=== PATIENT | female | born 1945 | race American Indian/Alaskan Native ===

== ENCOUNTER 2017-09-30 22:31 | Inpatient (IN) | payer MEDICARE, OTHER, SELFPAY ==
[2017-09-30] VITALS (7 sets, daily range): BP systolic 141–149; BP diastolic 50–58; PULSE 65–71; RESP 18–23; TEMP 36.4; O2SAT 2–100
[2017-09-30] MEDS: ALBUTEROL/IPRATROPIUM 3 ML AMPUL INH (22:42)
--- NOTE | 2017-09-30 22:42 | ED.SOB ---
HPI - SOB/Dyspnea General Chief Complaint: Shortness of Breath/Dyspnea Stated Complaint: TROUBLE BREATHING Time Seen by Provider: 09/30/17 22:33 Source: patient and family Mode of arrival: ambulatory Limitations: no limitations History of Present Illness 71-year-old female with history of asthma and a former smoker presents with increasing shortness of breath for the past 30 days and tremendous worsening over the course of the day. She has access to oxygen at home which she normally uses only seldom but has been using it much of the day. She has had chills but no measured fever and cough productive of yellowish sputum. She is not dizzy nor weak or lightheaded. She denies any chest pain. She denies recent travel or history of blood clot. Her shortness of breath is worse with MD Complaint: shortness of breath and cough Onset (ago): day(s) Severity: severe Consistency/Duration: constant Relieving factors: oxygen and rest Exacerbating factors: movement, coughing and talking Known history of: COPD and asthma Treatment prior to arrival: oxygen and bronchodilator Related Data Home Medications Medication Instructions Recorded Confirmed Calcium Carbonate/Vitamin D 1 tab PO BID #0 09/10/12 09/30/17 (#CALCIUM 500 W/VITAMIN D 500 MG-125 IU) [CLONIDINE TOP] 0.3 mg TD QWEEK #0 09/10/12 09/30/17 allopurinol 300 mg PO BID #0 09/10/12 09/30/17 insulin aspart U-100 [Novolog 0 - 100 units SQ TID #0 09/10/12 09/30/17 PenFill U-100 Insulin] simvastatin 40 mg PO QDAY #0 09/10/12 09/30/17 telmisartan [Micardis] 80 mg PO QDAY #0 09/10/12 09/30/17 tiotropium bromide [Spiriva with 1 puff INHALATION DAILY #0 09/10/12 09/30/17 HandiHaler] amitriptyline 75 mg PO HS #0 07/18/16 09/30/17 cetirizine 10 mg PO QDAY #0 07/18/16 09/30/17 fluticasone 2 spray INTRANASAL QDAY #0 07/18/16 09/30/17 gabapentin [Neurontin] 300 mg PO BID #0 07/18/16 09/30/17 [OCTUVITE] 1 cap PO DAILY #0 12/12/16 09/30/17 aspirin 81 mg PO DAILY #0 12/12/16 09/30/17 diltiazem HCl 240 mg PO DAILY 09/30/17 09/30/17 fluticasone-salmeterol [Advair 1 inh INHALATION BID 09/30/17 09/30/17 Diskus] Allergies Allergy/AdvReac Type Severity Reaction Status Date / Time YADIRA Inhibitors Allergy Severe ANAPHYLAXSI Verified 09/30/17 22:55 [YADIRA INHIBITORS] S doxazosin [DOXAZOSIN] Allergy Severe ANAPHYLAXSI Verified 09/30/17 22:55 S hydralazine [HYDRALAZINE] Allergy Severe ANAPHYLAXSI Verified 09/30/17 22:55 S Sulfa (Sulfonamide Allergy Severe ANAPHYLAXSI Verified 09/30/17 22:55 Antibiotics) S [SULFA (SULFONAMIDE ANTIBIOTICS)] trimethoprim [TRIMETHOPRIM] Allergy Severe ANAPHYLAXSI Verified 09/30/17 22:55 S Review of Systems Review of Systems All systems reviewed & are unremarkable except as noted in HPI and below Constitutional Reports chills, Denies fever(s), Denies lethargy and Reports weakness Eyes Denies change in vision, Denies eye discharge, Denies irritation and Denies loss of vision ENT Ears, Nose, Mouth, and Throat: Denies change in voice, Denies neck pain and Denies sore throat Cardiovascular Denies chest pain, Denies irregular heart rhythm, Denies lightheadedness, Denies palpitations, Reports dyspnea, Reports dyspnea on exertion and Denies orthopnea Respiratory Reports cough, Reports dyspnea, Reports dyspnea on exertion and Reports wheezing Gastrointestinal Gastrointestinal: Denies abdominal pain, Denies change in bowel habits, Denies diarrhea, Denies nausea and Denies vomiting Genitourinary Denies hematuria, Denies flank pain, Denies urinary incontinence and Denies urinary urgency Musculoskeletal Denies neck pain Integumentary/Breasts Denies pruritus, Denies erythema, Denies rash and Denies wounds Neurologic Denies confusion, Denies loss of vision and Reports weakness Psychiatric Denies anxiety, Denies confusion, Denies depression, Denies homicidal ideation and Denies suicidal ideation Endocrine Denies palpitations Hematologic/Lymphatic Denies easy bruising Allergic/Immunologic Reports wheezing PFSH Medical History Asthma (Acute) Breast cancer (Acute) CKD stage 3 due to type 2 diabetes mellitus (Acute) COPD (chronic obstructive pulmonary disease) (Acute) H/O: hysterectomy (Acute) HTN (hypertension) (Acute) Exam Narrative Exam Narrative: Pleasant 71-year-old female in obvious distress, unable to complete a full sentence due to difficulty in breathing. Initial pulse ox in the upper 80s Initial Vital Signs Initial Vital Signs: Vital Signs Temperature 97.6 F 09/30/17 22:35 Pulse Rate 66 09/30/17 22:35 Respiratory Rate 20 09/30/17 22:35 Blood Pressure 149/58 H 09/30/17 22:35 Pulse Oximetry 88 L 09/30/17 22:35 Const General: cooperative, well developed, acute distress and ill appearing Nutritional Appearance: well nourished Orientation: alert, awake, oriented x3 and not confused HENMT Head: normal to inspection Ears: hearing grossly normal bilaterally Nose: external nose normal Eyes Pupils: PERRL EOM: EOM intact bilaterally Resp Effort & Inspection: labored, respiratory distress, tachypneic, uses accessory muscles and prolonged expiratory phase Auscultation: diminished lung sounds, rales and wheezes Cardio Rate: regular rate Rhythm: regular rhythm Heart Sounds: no click, no gallops, no murmurs and no rubs Pulses: normal peripheral pulses GI Inspection: non-distended Palpation: soft, no hepatosplenomegaly, No guarding, No pulsatile mass and No tender Auscultation: normal bowel sounds Back/Spine/Pelvis Back: No CVA tenderness Cervical Spine: cervical ROM normal and No pain with cervical ROM Thoracic/Lumbar Spine: thoracic and lumbar spine normal to inspection Skin General: no rashes or lesions noted, No jaundice and No petechiae Neuro General: alert, awake and oriented x3 Cognition: normal cognition Motor: muscle tone normal throughout Sensory Exam: no sensory deficits noted Extrem Right lower extremity: edema Left lower extremity: edema Psych Appearance: grossly normal Attitude: cooperative Thought Content: normal Course Orders Ordered: ED Orders 09/30/17 22:39 EKG-12 Lead Stat 09/30/17 22:40 Consult to Respiratory Therapy Evaluate & Treat 09/30/17 22:45 B Type Natriuretic Peptide Stat Basic Metabolic Panel Stat Complete Blood Count AUTO DIFF Stat Lactate (Lactic Acid) Stat Magnesium Stat Procalcitonin Stat Troponin & CK Cardiac Panel Stat 09/30/17 23:00 Blood Culture Stat 09/30/17 23:25 Arterial Blood Gas Stat 09/30/17 23:29 XR chest 1V Stat 10/01/17 00:10 Urine Microscopic Stat 10/01/17 05:00 Basic Metabolic Panel Stat Complete Blood Count AUTO DIFF Stat Sodium Chloride (Normal Saline 0.9%) 1,000 mls @ 0 mls/hr IV CONT IRWIN Last Admin: 10/01/17 03:15 Dose: 21 mls/hr Ondansetron HCl (Zofran) 4 mg IV Q4H PRN PRN Reason: Nausea And Vomiting Discontinued Medications Albuterol (Proventil) 2.5 mg INH NOW ONE Stop: 09/30/17 22:41 Last Admin: 09/30/17 23:52 Dose: Albuterol (Ventolin) 2.5 mg INH NOW ONE Stop: 09/30/17 23:02 Last Admin: 09/30/17 23:02 Dose: 2.5 mg Albuterol (Ventolin) 2.5 mg INH NOW ONE Stop: 09/30/17 23:13 Last Admin: 09/30/17 23:13 Dose: 2.5 mg Albuterol/Ipratropium (Duoneb) 3 ml INH NOW ONE Stop: 09/30/17 22:41 Last Admin: 09/30/17 22:42 Dose: 3 ml Albuterol/Ipratropium (Duoneb) 3 ml INH NOW ONE Stop: 09/30/17 22:41 Last Admin: 09/30/17 23:53 Dose: Furosemide (Lasix) 60 mg IV NOW ONE Stop: 09/30/17 23:49 Last Admin: 10/01/17 00:01 Dose: 60 mg Ceftriaxone Sodium/Dextrose (Rocephin) 1 gm in 50 mls @ 100 mls/hr IV NOW ONE Stop: 09/30/17 23:09 Last Infusion: 09/30/17 23:59 Dose: 0 mls/hr Admin: 09/30/17 23:05 Dose: 100 mls/hr Sodium Chloride (Normal Saline 0.9%) 1,000 mls @ 150 mls/hr IV CONT IRWIN Last Infusion: 09/30/17 23:53 Dose: 0 mls/hr Admin: 09/30/17 23:17 Dose: 150 mls/hr Methylprednisolone (Solu-Medrol 125 Mg Vial) 125 mg IV NOW ONE Stop: 09/30/17 22:41 Last Admin: 09/30/17 23:17 Dose: 125 mg Pantoprazole Sodium (Protonix) 40 mg IV NOW ONE Stop: 10/01/17 02:36 Last Admin: 10/01/17 03:19 Dose: 40 mg Reevaluation(s) Reevaluation #1: Patient making urine after Lasix 60 mg IVP. Consultations Consultation #1: Called to Nephrology at [facility] given significant bump in creatinine and acute CHF. He states that given her ability to make urine in response to lasix that there is no consideration of HD. Time: 00:16 Consultation #2: Call to Dr. Mcgowan Vital Signs - 8 hr 09/30/17 22:35 09/30/17 22:41 09/30/17 22:42 Temperature 97.6 F Pulse Rate 66 65 Respiratory Rate 20 23 Blood Pressure 149/58 H Blood Pressure [Left Arm] Pulse Oximetry 88 L 95 100 09/30/17 23:00 09/30/17 23:02 09/30/17 23:13 Temperature Pulse Rate 65 65 65 Respiratory Rate 23 20 18 Blood Pressure Blood Pressure [Left Arm] 141/50 H Pulse Oximetry 96 96 97 09/30/17 23:33 10/01/17 00:56 10/01/17 01:44 Temperature Pulse Rate 71 72 75 Respiratory Rate 23 11 L 12 Blood Pressure Blood Pressure [Left Arm] 141/50 H 145/53 H 137/53 H Pulse Oximetry 2 L 97 97 10/01/17 02:10 Temperature 97.9 F Pulse Rate 81 Respiratory Rate Blood Pressure 142/69 H Blood Pressure [Left Arm] Pulse Oximetry 95 MDM - SOB/Dyspnea Differential Diagnosis Likely acute exacerbation of chronic obstructive airways disease, congestive heart failure, community acquired pneumonia, asthma with exacerbation and other (acute renal failure) Medical Records Attestation: I reviewed the patient's medical records. Lab Data Attestation: I reviewed the patient's lab results. Result diagrams: 09/30/17 22:45 09/30/17 22:45 Lab Results 09/30/17 09/30/17 09/30/17 Range/Units 22:45 22:45 22:45 WBC 9.4 (4.5-11.0) X10^3/uL RBC 3.83 L (4.0-5.2) X10^6/uL Hgb 12.2 (12.0-16.0) g/dL Hct 36.7 (36-46) % MCV 95.9 (80-100) fL MCH 31.9 (26-34) PG MCHC 33.3 (30-36) % RDW 17.5 H (11.6-14.8) % Plt Count 166 (150-400) X10^3/uL Neut % (Auto) 67.0 (50-75) % Lymph % (Auto) 16.2 L (25-40) % [place] % (Auto) 9.5 (3-14) % Eos % (Auto) 6.7 H (2-4) % Baso % (Auto) 0.6 (0-2) % Neut # (Auto) 6300 H (1773-0210) /uL ABG pH (7.35-7.45) ABG pCO2 (35-45) mmHg ABG pO2 (80-105) mmHg ABG HCO3 (23-27) mmol/L ABG Total CO2 (23-27) mmol/L ABG O2 Saturation (95-100) % ABG Base Excess (-2-3) mmol/L FiO2 Sodium 138 (137-145) mmol/L Potassium 5.3 H (3.4-5.1) mmol/L Chloride 103 (98-107) mmol/L Carbon Dioxide 26 (22-32) mmol/L BUN 70 H (7-17) mg/dL Creatinine 3.30 H (0.52-1.04) mg/dL Estimated GFR 13.8 L (>60) mL/min BUN/Creatinine Ratio 21.2 (6-22) Glucose 102 (80-110) mg/dL Lactate (0.7-2.1) mmol/L Calcium 9.0 (8.4-10.2) mg/dL Magnesium 2.1 (1.6-2.3) mg/dL Total Creatine Kinase 333 H (30-135) U/L Troponin I 0.050 H (0.01-0.034) ng/mL B-Natriuretic Peptide 222.0 H (<100) Procalcitonin 0.10 (<0.5) ng/mL Urine RBC (0-5/HPF) Urine WBC (0-5/HPF) Ur Squamous Epith Cells Urine Bacteria (None) Hyaline Casts (None) Granular Casts (None) Ur Culture Indicated? Micro UA Comment 09/30/17 09/30/17 10/01/17 Range/Units 22:45 23:25 00:10 WBC (4.5-11.0) X10^3/uL RBC (4.0-5.2) X10^6/uL Hgb (12.0-16.0) g/dL Hct (36-46) % MCV (80-100) fL MCH (26-34) PG MCHC (30-36) % RDW (11.6-14.8) % Plt Count (150-400) X10^3/uL Neut % (Auto) (50-75) % Lymph % (Auto) (25-40) % [place] % (Auto) (3-14) % Eos % (Auto) (2-4) % Baso % (Auto) (0-2) % Neut # (Auto) (2491-8134) /uL ABG pH 7.34 L (7.35-7.45) ABG pCO2 49.9 H (35-45) mmHg ABG pO2 61 L (80-105) mmHg ABG HCO3 27 (23-27) mmol/L ABG Total CO2 29 H (23-27) mmol/L ABG O2 Saturation 89 L (95-100) % ABG Base Excess 1.0 (-2-3) mmol/L FiO2 21 Sodium (137-145) mmol/L Potassium (3.4-5.1) mmol/L Chloride (98-107) mmol/L Carbon Dioxide (22-32) mmol/L BUN (7-17) mg/dL Creatinine (0.52-1.04) mg/dL Estimated GFR (>60) mL/min BUN/Creatinine Ratio (6-22) Glucose (80-110) mg/dL Lactate 1.0 (0.7-2.1) mmol/L Calcium (8.4-10.2) mg/dL Magnesium (1.6-2.3) mg/dL Total Creatine Kinase (30-135) U/L Troponin I (0.01-0.034) ng/mL B-Natriuretic Peptide (<100) Procalcitonin (<0.5) ng/mL Urine RBC 0-1/hpf (0-5/HPF) Urine WBC None seen (0-5/HPF) Ur Squamous Epith Cells 0-1 /hpf Urine Bacteria None seen (None) Hyaline Casts 0-1/lpf (None) Granular Casts Occasional H (None) Ur Culture Indicated? Cult not indicated Micro UA Comment Not Reportable ABG Data Attestation: I personally reviewed and interpreted this ABG as follows: Interpretation: Primary respiratory acidosis with metabolic alkalosis Imaging Data Chest x-ray: Attestation: I personally reviewed and interpreted this imaging study as follows: My impression: Acute CHF with mild pulmonary edema, cardiomegaly, and fluid in the fissures ECG Data Attestation: I personally reviewed and interpreted this ECG as follows: Interpretation: Normal sinus rhythm at 64. No signs of ectopy. No ST segmental elevation or T-wave inversion MDM Narrative Medical decision making narrative: Patient presents in obvious respiratory distress and is wheezy from the door, this is consistent with her history of reactive airway disease and COPD. Additionally she has had cough productive of yellowish sputum, in the absence of fever. Finally she has bibasilar crackles, CHF on x-ray, and lower extremity edema. Her hypoxic respiratory failure is multifactorial. Nephrology has been consulted and does not consider her a dialysis patient, recommends only diuresis Critical Care Time Critical Care Time: Yes Total Critical Care Time: 30 Attestation: Critical care time is separate from other billable procedures. This critical care time includes consultation with family and other consulting doctors, review of records, and interpretation of data from labs, EKGs, imaging, etc. Discharge Plan Departure Patient Disposition: Admitted As Inpatient Clinical Impression: Acute respiratory failure with hypoxia, Acute exacerbation of chronic obstructive pulmonary disease (COPD), Acute renal failure Discharge Date/Time: 10/01/17 02:02 Interventions: ED Discharge Assessment Last Done: 10/01/17 01:58 Admit Date/Time: 10/01/17 01:55 Admit Provider: Aleyda Boyd
[2017-09-30] MEDS: ALBUTEROL 2.5 MG/3 ML NEB (ADULT) INH ×2 (23:02→23:13)
[2017-09-30] MEDS: CEFTRIAXONE 1 GM/50 ML FROZ.PIGGY IV (23:05)
[2017-09-30 23:13] LABS: Add Manual Diff / Slide Review NO; Basophils Percent Auto 0.6 % (0-2); Eosinophils Percent Auto 6.7 % (2-4); Hematocrit 36.7 % (36-46); Hemoglobin 12.2 g/dL (12.0-16.0); Lymphocytes Percent Auto 16.2 % (25-40); Mean Corpuscular HGB Conc 33.3 % (30-36); Mean Corpuscular Hemoglobin 31.9 PG (26-34); Mean Corpuscular Volume 95.9 fL (80-100); Monocytes Percent Auto 9.5 % (3-14); Neutrophils Absolute Auto 6300 /uL (3000-5900); Platelet Count 166 X10^3/uL (150-400); Red Blood Cell Count 3.83 X10^6/uL (4.0-5.2); Red Cell Distribution Width 17.5 % (11.6-14.8); White Blood Cell Count 9.4 X10^3/uL (4.5-11.0)
[2017-09-30 23:16] LABS: BUN Creatinine Ratio 21.2 (6-22); Blood Urea Nitrogen 70 mg/dL (7-17); Carbon Dioxide 26 mmol/L (22-32); Chloride 103 mmol/L (98-107); Creatine Kinase 333 U/L (30-135); Estimated Glomerular Filt Rate 13.8 mL/min (>60); Glucose 102 mg/dL (80-110); Magnesium 2.1 mg/dL (1.6-2.3); Sodium 138 mmol/L (137-145)
[2017-09-30 23:17] LABS: HEMOLYSIS 81 (0-50)
[2017-09-30] MEDS: methylPREDNISolone 125 MG/2 ML VIAL IV (23:17)
[2017-09-30] MEDS: SODIUM CHLORIDE 0.9% 1,000 ML 150 ML IV (23:17)
[2017-09-30 23:18] LABS: Potassium 5.3 mmol/L (3.4-5.1)
--- NOTE | 2017-09-30 23:29 | DI.RAD.S_ITS ---
PROCEDURE: XR CHEST 1V INDICATIONS: Shortness of breath TECHNIQUE: One view of the chest was acquired. COMPARISON: [facility], , CHEST 2 VIEW, 01/18/2015, 10:57. FINDINGS: Surgical changes and devices: None. Lungs and pleura: Bilateral diffuse airspace opacity suspicious for pulmonary edema secondary to congestive heart failure. No pleural effusions or pneumothorax. Mediastinum: Mediastinal contours appear normal. Heart size is moderately increased. Bones and chest wall: No suspicious bony lesions. Overlying soft tissues appear unremarkable. IMPRESSION: Congestive heart failure. Dictated by: Brad Jaimes M.D. on 10/01/2017 at 9:34 Approved by: Brad Jaimes M.D. on 10/01/2017 at 9:35
[2017-09-30 23:43] LABS: Fractionated Inspired Oxygen 21; HCO3 ABG 27 mmol/L (23-27); Oxygen Saturation ABG 89 % (95-100); PCO2 ABG 49.9 mmHg (35-45); PO2 ABG 61 mmHg (80-105); TCO2 ABG 29 mmol/L (23-27); pH ABG 7.34 (7.35-7.45)
[2017-10-01] VITALS (21 sets, daily range): BP systolic 128–170; BP diastolic 53–75; PULSE 72–111; RESP 11–22; TEMP 36.1–36.8; O2SAT 2–98; BMI 32.7
--- NOTE | 2017-10-01 | DI.ECHO.S_ITS ---
[facility] +---------+ : : [address] [place] [place] : : : : [id number] : : : : Phone: [phone] Echocardiogram Report + + :Name: LUCIAN GRIMALDO Jarrell Study Date: 10/01/2017 Height: 59 in : :[facility] Weight: 162 lb : : Gender: Female BSA: 1.7 m2 : :: 1945 Age: 71 yrs BP: 140/50 mmHg: :Reason For Study: COPD : : Performed By: Madhuri Alberto : :Referring: PRECIOUS ANN : + + Interpretation Summary Technically difficult study limit valve visualization. 1) Normal left ventricular thickness, size, wall motion, and systolic function (EF 65-70%). 2) Grossly normal right ventricular size and function. 3) Mildly calcific aortic and mitral valves with no significant stenosis or regurgitation. 4) The right ventricular systolic pressure is estimated at 46 mmHg assuming a right atrial pressure of 3 mm Hg. 5) No prior Echo available for comparison. Procedure: A two-dimensional transthoracic echocardiogram with color flow and Doppler was performed. The study quality was technically adequate. There is no prior echocardiogram noted for this patient. The heart rate ranged between 101-102 bpm during the study. Left Ventricle: The left ventricle is normal in size, wall thickness, and systolic function without any focal wall motion abnormalities. The ejection fraction is estimated to be 65-70%. Diastolic function could not be accurately assessed due to tachycardia. Right Ventricle: The right ventricle grossly appears normal in size with probable normal systolic function. Atria: The left atrial size is normal. Right atrial size is normal. Mitral Valve: The mitral valve is grossly normal. The mitral valve leaflets are mildly calcified. There is no mitral regurgitation noted. Aortic Valve: The aortic valve opens well. The aortic valve is mildly calcified. No aortic regurgitation is present. Tricuspid Valve: The tricuspid valve is not well visualized, but is grossly normal. There is trace tricuspid regurgitation. The right ventricular systolic pressure is estimated at 46 mmHg assuming a right atrial pressure of 3 mm Hg. Pulmonic Valve: The pulmonic valve is not well seen, but is grossly normal. There is no pulmonic valvular regurgitation. Great Vessels: The aortic root is normal size. The dimensions of the ascending aorta are normal. The IVC is of normal diameter and collapses greater than 50% with a sniff. This suggests a low right atrial pressure of 3 mm Hg. Pericardium/ Pleura There is no pericardial effusion. There is no pleural effusion. MMode/2D Measurements & Calculations LVIDd: 4.9 cm Ao root diam: 2.5 cm LVIDs: 2.6 cm Aortic Jxn: 1.5 cm FS: 47.8 % asc Aorta Diam: 2.5 cm IVSd: 0.85 cm LVPWd: 0.93 cm LV eavns. diameter/BSA (cm/m^2): 2.9 LV sys. diameter/BSA (cm/m^2): 1.5 LA dimension: 3.9 cm RA long axis: 4.0 cm LA A2 area: 18.3 cm2 RA area: 10.2 cm2 LA A4 area: 16.1 cm2 RA vol: 21.9 ml LA length (vol): 4.9 cm RA : 13.0 ml/m2 LA vol: 50.7 ml IVC diam: 1.9 cm LA vol index: 30.1 ml/m2 RVDd major: 5.0 cm RVD1 (basal): 3.7 cm RVD2 (mid): 3.1 cm Doppler Measurements & Calculations Ao V2 max: 220.3 cm/sec LVOT Max Adriel: 87.3 cm/sec Ao V2 mean: 141.7 cm/sec LV V1 max P.0 mmHg Ao max P.4 mmHg LV V1 VTI: 16.8 cm Ao mean P.7 mmHg sev ratio: 0.42 Ao V2 VTI: 40.1 cm MV E max adriel: 95.3 cm/sec TR max adriel: 328.2 cm/sec MV A max adriel: 132.3 cm/sec TR max P.1 mmHg MV E/A: 0.72 PA V2 max: 105.0 cm/sec MV dec time: 0.22 sec PA V2 mean: 72.2 cm/sec MV P1/2t: 66.3 msec PA mean P.4 mmHg PA Accel Time: 0.13 sec MV P1/2t max adriel: 95.6 cm/sec MVA(P1/2t): 3.3 cm2 Reading Physician:05:08 PM
[2017-10-01] MEDS: FUROSEMIDE 100 MG/10 ML VIAL 60 MG IV (00:01)
[2017-10-01 00:39] LABS: Bacteria Urine None Seen; WBC Urine None Seen (0-5/HPF)
[2017-10-01 00:49] LABS: RBC Urine 0-1/HPF (0-5/HPF); Squamous Epithelial Cell Urine 0-1 /HPF
[2017-10-01 00:50] LABS: Granular Casts Urine Occasional; Hyaline Casts Urine 0-1/LPF
[2017-10-01 00:53] LABS: Culture Indicated Urine Cult Not Indicated
--- NOTE | 2017-10-01 01:41 | PC.NURSE ---
Pt. sleeping, vitals stable. awaiting bed without isssue. no further orders at present
[2017-10-01] MEDS: SODIUM CHLORIDE 0.9% 1,000 ML 21 ML IV (03:15)
[2017-10-01] MEDS: PANTOPRAZOLE 40 MG VIAL IV ×2 (03:19→09:23)
--- NOTE | 2017-10-01 04:02 | PC.ADMIT ---
[id number] Admission Note: The patient,Paula Wheeler,71 y/o, was given written information regarding hospital policies, unit procedures and contact persons. Patient's smoking status: Former smoker. Vital Signs - 8 hr 09/30/17 22:35 09/30/17 22:41 09/30/17 22:42 Temperature 97.6 F Pulse Rate 66 65 Respiratory Rate 20 23 Blood Pressure 149/58 H Blood Pressure [Left Arm] Pulse Oximetry 88 L 95 100 09/30/17 23:00 09/30/17 23:02 09/30/17 23:13 Temperature Pulse Rate 65 65 65 Respiratory Rate 23 20 18 Blood Pressure Blood Pressure [Left Arm] 141/50 H Pulse Oximetry 96 96 97 09/30/17 23:33 10/01/17 00:56 10/01/17 01:44 Temperature Pulse Rate 71 72 75 Respiratory Rate 23 11 L 12 Blood Pressure Blood Pressure [Left Arm] 141/50 H 145/53 H 137/53 H Pulse Oximetry 2 L 97 97 10/01/17 02:10 Temperature 97.9 F Pulse Rate 81 Respiratory Rate Blood Pressure 142/69 H Blood Pressure [Left Arm] Pulse Oximetry 95 Pt is AxOx3, on 2L NC and saturating well at 97%. Pt is dyspneic on exertion and at rest. Fine crackles noted in b/l upper lungs anteriorly. Pt has a productive cough producing small thick yellow secretions. Generalized edema noted throughout. Puffy eyes. Pt states she has ringing in her ears on and off. Some numbness in her feet at times. Bruising and scars throughout body. There's a small open wound on right calf from what patient stated was a biopsy/culture by Dr. Boyd for cancer. NS@21mL/hr started as ordered. Pt has her own insulin pump attached at her LLQ which she stated she knows how to work properly. Pt will be a fingerstick ACHS/PRN. Pt is a 1x assist to bedside commode. She has voided 700cc upon arrival (recieved Lasix in ER). Continuous pulse ox monitoring started. Telemetry applied. Pt states no history of falls, and a former smoker 30yrs ago. vital signs are stable. No fever. No pain. Very pleasant lady. Small patch on lower left back which patient stated is a Clonidine patch
--- NOTE | 2017-10-01 04:58 | PC.NURSE ---
Pt desatted to 80% during the night on 2L nasal cannula. The patient is heavily mouth breathing. Head of bed elevated, O2 increased to 3L and now saturating at 94%. Does not appear in any distress. RR 13
[2017-10-01 05:54] LABS: Add Manual Diff / Slide Review NO; Basophils Percent Auto 0.2 % (0-2); Eosinophils Percent Auto 0.1 % (2-4); Hematocrit 38.8 % (36-46); Hemoglobin 12.8 g/dL (12.0-16.0); Lymphocytes Percent Auto 4.4 % (25-40); Mean Corpuscular Hemoglobin 32.2 PG (26-34); Mean Corpuscular Volume 97.5 fL (80-100); Monocytes Percent Auto 0.9 % (3-14); Neutrophils Absolute Auto 6400 /uL (3000-5900); Neutrophils Percent Auto 94.4 % (50-75); Platelet Count 170 X10^3/uL (150-400); Red Blood Cell Count 3.98 X10^6/uL (4.0-5.2); Red Cell Distribution Width 17.7 % (11.6-14.8); White Blood Cell Count 6.8 X10^3/uL (4.5-11.0)
[2017-10-01 06:49] LABS: BUN Creatinine Ratio 21.6 (6-22); Blood Urea Nitrogen 67 mg/dL (7-17); Calcium 9.3 mg/dL (8.4-10.2); Carbon Dioxide 27 mmol/L (22-32); Chloride 105 mmol/L (98-107); Estimated Glomerular Filt Rate 14.9 mL/min (>60); Glucose 124 mg/dL (80-110); HEMOLYSIS < 15 (0-50); Potassium 4.3 mmol/L (3.4-5.1); Sodium 139 mmol/L (137-145)
[2017-10-01] MEDS: [UNRECOGNIZED DRUG - OTHER] SQ ×3 (08:05→17:08)
--- NOTE | 2017-10-01 08:35 | PC.NURSE ---
Addendum entered by Rosana Beltrán R.N. 10/01/17 12:49: Alert and oriented X3. SpO2 on 2L mid 90's for the most part. Occasional coughing fits, can de-sat with those. Cont pulse ox in place. Lungs with bibasilar crackles, CTA otherwise. Cough is productive of thick yellow sputum. Denies pain or other complaints. Able to make needs known and calls appropriately. Light in reach, bed alarm on for safety. Original Note: CBG was 144 with her own machine before breakfast. She gave herself 8.2 units (via her insulin pump)- see communication order re: the same. She's sitting up in bed eating breakfast now. SpO2 on 2L 98% at rest.
[2017-10-01 08:44] LABS: Creatine Kinase 256 U/L (30-135)
[2017-10-01 08:57] LABS: Troponin I 0.042 ng/mL (0.01-0.034)
[2017-10-01 09:15] LABS: CKMB % Relative Index 2.3 % (1.5-5.0); Creatine Kinase MB 5.76 ng/mL (<2.37)
[2017-10-01] MEDS: ALBUTEROL/IPRATROPIUM 3 ML AMPUL INH ×4 (09:19→19:45)
[2017-10-01] MEDS: SODIUM CHLORIDE 0.45% 1,000 ML 100 ML IV ×2 (09:20→19:56)
[2017-10-01] MEDS: ALLOPURINOL 100 MG TABLET PO (09:21)
[2017-10-01] MEDS: GABAPENTIN 300 MG CAPSULE PO ×2 (09:21→20:22)
[2017-10-01] MEDS: dilTIAZem CD 120 MG CAP 240 MG PO (09:21)
[2017-10-01] MEDS: VIT C/E/ZN/COPPR/LUTEIN/ZEAXAN CAPSULE 1 CAP PO (09:21)
[2017-10-01] MEDS: CALCIUM CARB/VIT D3 500/200 TABLET 1 EACH PO ×2 (09:21→20:22)
[2017-10-01] MEDS: FLUTICASONE 120 SPRAY/16 GM SPRAY.SUSP NASAL (09:22)
[2017-10-01] MEDS: LORATADINE 10 MG TABLET PO (09:22)
[2017-10-01] MEDS: CEFTRIAXONE 1 GM/50 ML FROZ.PIGGY IV ×2 (09:22→20:22)
[2017-10-01] MEDS: methylPREDNISolone 125 MG/2 ML VIAL 60 MG IV ×3 (09:23→20:22)
[2017-10-01] MEDS: FLUTICASONE/SALMETEROL 250/50 14 PUFF DISKUS INH ×2 (12:21→19:45)
--- NOTE | 2017-10-01 15:33 | CM.DPC ---
DCP attempted Initial interview today but patient was just starting to undergo an echocardiogram, so interview was not possible. Per CHILO Wayne, patient likely has CHF. They are treating with IV steroids and ABX. Awaiting results of testing and echo. PLAN: To be determined. Patient will need interview and full DCP eval on Sat, 10/02. Jennifer Venegas RN
--- NOTE | 2017-10-01 18:07 | PM.HP.1 ---
History of Present Illness Date Patient Seen: 10/01/17 Time Patient Seen: 08:08 Chief complaint: TROUBLE BREATHING Narrative: This pleasant 71-year-old female presented to emergency department on the date of admission with complaints of progressively worsening shortness of breath. She has a history of reactive airway disease and tobacco abuse as well as diabetes which is controlled with an insulin pump and she had noticed over the last month that she has been having cough with production and phlegm that had progressively worsened over the last several days. She was having coughing attacks and having phlegm that was stuck in her airway and progressive worsening dyspnea. She received for nebulizers treatments in the ER before she was improved and her O2 sats on room air were in the upper 80s and so she was given Solu-Medrol and it was felt that there was possible component of congestive heart failure based on the x-ray and she was given IV Lasix 40 mg. She was also noted to have acute on chronic renal failure and so she was admitted for the further treatment. She states she is feeling much better today and is quite surprised that I am not going to send her home. She is eating and having a normal appetite and feels her breathing is better. Her O2 sats are 95% on 2 L nasal cannula oxygen. Past medical history: One. Type 2 diabetes she is now insulin dependent and is seeing an import clerk at [facility] and is on an insulin pump. She has had diabetes for greater than 20 years. 2. Reactive airways disease 3. COPD. Despite having fairly poor lung function she has avoided hospitalizations for acute exacerbations and has been fairly stable on her outpatient regimen of Spiriva, Advair and albuterol. She does not use nebulizers at home. She uses oxygen at night on an as needed basis Four. Hypertension 5. Hyperlipidemia 6. Breast cancer status post lumpectomy, radiation 7. Chronic kidney disease, stage III. Secondary to diabetes. Managed by rope laying machine operator 8. Allergic rhinitis Past surgical history: 1. Right breast lumpectomy 2. Hysterectomy Family history: Diabetes on her mom's side Hypertension in both parents Children are healthy Health through the behavior: She does not exercise She previously smoked but quit several years ago She does not use alcohol or illicit drugs Social history: She is originally from the [facility]. Croatian is her 2nd language. She has 2 children and has grandchildren who live nearby locally. She is and lives with her in [place] but they do live in [place] in the winter. Review of systems: She denies any headaches or visual changes No chest pain, lightheadedness or dizziness No diarrhea or constipation. No blood in her stool. No reflux. She does have dyspnea on exertion that has worsened She denies depression or anxiety Denies unintentional weight loss or weight gain Blood sugars have been well controlled She has had routine follow-up on her breast cancer Patient History Medical History Asthma (Acute) Breast cancer (Acute) CKD stage 3 due to type 2 diabetes mellitus (Acute) COPD (chronic obstructive pulmonary disease) (Acute) H/O: hysterectomy (Acute) HTN (hypertension) (Acute) Family & Social History Social History: household members spouse Prior Living Arrangements RV Safety & Behavioral: Feels Safe in Current Yes Environment Been Physically Hurt or No Threatened By a Person Suicidal Ideation Description None Suicide Plan Description No Plan Tobacco & Substance use: Smoking Status Former smoker alcohol intake never Meds Home Medications Medication Instructions Recorded Confirmed Type Calcium Carbonate/Vitamin D 1 tab PO BID #0 09/10/12 09/30/17 History (#CALCIUM 500 W/VITAMIN D 500 MG-125 IU) [CLONIDINE TOP] 0.3 mg TD QWEEK #0 09/10/12 09/30/17 History allopurinol 300 mg PO BID #0 09/10/12 09/30/17 History insulin aspart U-100 [Novolog 0 - 100 units SQ TID #0 09/10/12 09/30/17 History PenFill U-100 Insulin] simvastatin 40 mg PO QDAY #0 09/10/12 09/30/17 History telmisartan [Micardis] 80 mg PO QDAY #0 09/10/12 09/30/17 History tiotropium bromide [Spiriva with 1 puff INHALATION DAILY #0 09/10/12 09/30/17 History HandiHaler] amitriptyline 75 mg PO HS #0 07/18/16 09/30/17 History cetirizine 10 mg PO QDAY #0 07/18/16 09/30/17 History fluticasone 2 spray INTRANASAL QDAY #0 07/18/16 09/30/17 History gabapentin [Neurontin] 300 mg PO BID #0 07/18/16 09/30/17 History [OCTUVITE] 1 cap PO DAILY #0 12/12/16 09/30/17 History aspirin 81 mg PO DAILY #0 12/12/16 09/30/17 History diltiazem HCl 240 mg PO DAILY 09/30/17 09/30/17 History fluticasone-salmeterol [Advair 1 inh INHALATION BID 09/30/17 09/30/17 History Diskus] Allergies Allergy/AdvReac Type Severity Reaction Status Date / Time YADIRA Inhibitors Allergy Severe ANAPHYLAXSI Verified 09/30/17 22:55 [YADIRA INHIBITORS] S doxazosin [DOXAZOSIN] Allergy Severe ANAPHYLAXSI Verified 09/30/17 22:55 S hydralazine [HYDRALAZINE] Allergy Severe ANAPHYLAXSI Verified 09/30/17 22:55 S Sulfa (Sulfonamide Allergy Severe ANAPHYLAXSI Verified 09/30/17 22:55 Antibiotics) S [SULFA (SULFONAMIDE ANTIBIOTICS)] trimethoprim [TRIMETHOPRIM] Allergy Severe ANAPHYLAXSI Verified 09/30/17 22:55 S Exam Vital Signs (past 8 hours): - 10/01/17 12:14 10/01/17 12:32 10/01/17 12:35 Temperature 97.8 F Pulse Rate 104 H 111 H Respiratory Rate 18 Blood Pressure 151/63 H Pulse Oximetry 95 98 93 10/01/17 14:02 10/01/17 15:15 10/01/17 16:09 Temperature 98.0 F Pulse Rate 110 H Respiratory Rate 19 Blood Pressure 142/66 H Pulse Oximetry 93 94 96 Oxygen Delivery Method Nasal Cannula Oxygen Flow Rate 2 Narrative Exam Narrative: Patient is alert and oriented in no apparent distress sitting comfortably in hospital bed. Afebrile, vital signs are stable. O2 sats 94-96% on 2 L nasal cannula oxygen HEENT: Eyes pupils equal round reactive to light , extraocular movements intact Nares patent Oropharynx: Clear without exudate, mucous membranes slightly dry Neck: Supple without adenopathy thyromegaly or jugular venous distention Chest: Diffuse inspiratory and expiratory wheezing with poor air exchange but no rhonchi, no crackles, no cough any Abdomen: Positive bowel sounds, soft, nontender, nondistended, no hepatosplenomegaly Extremities: Trace pitting pretibial edema. No pedal edema. Pulses 2+ bilateral dorsalis pedis and posterior tibialis Skin: No rashes. No ulcers or wounds on the lower legs or feet Neurologic exam: Nonfocal Objective Labs Result Diagrams: 10/01/17 05:33 10/01/17 06:20 Labs: Laboratory Results - last 24 hr 09/30/17 09/30/17 09/30/17 22:45 22:45 22:45 WBC 9.4 RBC 3.83 L Hgb 12.2 Hct 36.7 MCV 95.9 MCH 31.9 MCHC 33.3 RDW 17.5 H Plt Count 166 Neut % (Auto) 67.0 Lymph % (Auto) 16.2 L [place] % (Auto) 9.5 Eos % (Auto) 6.7 H Baso % (Auto) 0.6 Neut # (Auto) 6300 H ABG pH ABG pCO2 ABG pO2 ABG HCO3 ABG Total CO2 ABG O2 Saturation ABG Base Excess FiO2 Sodium 138 Potassium 5.3 H Chloride 103 Carbon Dioxide 26 BUN 70 H Creatinine 3.30 H Estimated GFR 13.8 L BUN/Creatinine Ratio 21.2 Glucose 102 Lactate Calcium 9.0 Magnesium 2.1 Total Creatine Kinase 333 H CK-MB (CK-2) CK-MB (CK-2) Rel Index Troponin I 0.050 H B-Natriuretic Peptide 222.0 H Procalcitonin 0.10 Urine RBC Urine WBC Ur Squamous Epith Cells Urine Bacteria Hyaline Casts Granular Casts Ur Culture Indicated? Micro UA Comment 09/30/17 09/30/17 10/01/17 22:45 23:25 00:10 WBC RBC Hgb Hct MCV MCH MCHC RDW Plt Count Neut % (Auto) Lymph % (Auto) [place] % (Auto) Eos % (Auto) Baso % (Auto) Neut # (Auto) ABG pH 7.34 L ABG pCO2 49.9 H ABG pO2 61 L ABG HCO3 27 ABG Total CO2 29 H ABG O2 Saturation 89 L ABG Base Excess 1.0 FiO2 21 Sodium Potassium Chloride Carbon Dioxide BUN Creatinine Estimated GFR BUN/Creatinine Ratio Glucose Lactate 1.0 Calcium Magnesium Total Creatine Kinase CK-MB (CK-2) CK-MB (CK-2) Rel Index Troponin I B-Natriuretic Peptide Procalcitonin Urine RBC 0-1/hpf Urine WBC None seen Ur Squamous Epith Cells 0-1 /hpf Urine Bacteria None seen Hyaline Casts 0-1/lpf Granular Casts Occasional H Ur Culture Indicated? Cult not indicated Micro UA Comment Not Reportable 10/01/17 10/01/17 10/01/17 05:33 05:33 05:33 WBC 6.8 RBC 3.98 L Hgb 12.8 Hct 38.8 MCV 97.5 MCH 32.2 MCHC 33.0 RDW 17.7 H Plt Count 170 Neut % (Auto) 94.4 H D Lymph % (Auto) 4.4 L [place] % (Auto) 0.9 L Eos % (Auto) 0.1 L Baso % (Auto) 0.2 Neut # (Auto) 6400 H ABG pH ABG pCO2 ABG pO2 ABG HCO3 ABG Total CO2 ABG O2 Saturation ABG Base Excess FiO2 Sodium Potassium Chloride Carbon Dioxide BUN Creatinine Estimated GFR BUN/Creatinine Ratio Glucose Lactate Calcium Magnesium Total Creatine Kinase 256 H CK-MB (CK-2) 5.76 H CK-MB (CK-2) Rel Index 2.3 Troponin I 0.042 H B-Natriuretic Peptide 247.0 H Procalcitonin Urine RBC Urine WBC Ur Squamous Epith Cells Urine Bacteria Hyaline Casts Granular Casts Ur Culture Indicated? Micro UA Comment 10/01/17 06:20 WBC RBC Hgb Hct MCV MCH MCHC RDW Plt Count Neut % (Auto) Lymph % (Auto) [place] % (Auto) Eos % (Auto) Baso % (Auto) Neut # (Auto) ABG pH ABG pCO2 ABG pO2 ABG HCO3 ABG Total CO2 ABG O2 Saturation ABG Base Excess FiO2 Sodium 139 Potassium 4.3 Chloride 105 Carbon Dioxide 27 BUN 67 H Creatinine 3.10 H Estimated GFR 14.9 L BUN/Creatinine Ratio 21.6 Glucose 124 H Lactate Calcium 9.3 Magnesium Total Creatine Kinase CK-MB (CK-2) CK-MB (CK-2) Rel Index Troponin I B-Natriuretic Peptide Procalcitonin Urine RBC Urine WBC Ur Squamous Epith Cells Urine Bacteria Hyaline Casts Granular Casts Ur Culture Indicated? Micro UA Comment Assessment & Plan Plan: Assessment/Plan Narrative: 71-year-old female Assessment 1. Acute respiratory distress secondary to COPD exacerbation with possible underlying community-acquired pneumonia and possible component of congestive heart failure. Some improvement with nebulizers and ceftriaxone Plan: Continue Solu-Medrol and we will put it at 60 mg IV q.8 hours Continue outpatient Advair and Spiriva Continue with respiratory therapy and albuterol nebulizer treatments as needed Continue with ceftriaxone to treat suspected infection Continuous supplemental oxygen. We will wean as able and monitor closely for CO T retention Will get an echo to rule out congestive heart failure. I do not think this is contributing factor. Assessment 2. Type 2 diabetes on insulin pump Plan: Will continue with the insulin pump. Will monitor blood sugars as we have her on Solu-Medrol. Assessment 3. Acute on chronic renal failure. She received Lasix last night despite this her creatinine is improved. Suspect related to ongoing illness. Probable dehydration. Plan: Will give IV fluids throughout the day. Will reassess this afternoon. If renal failure worsens will contact her rope laying machine operator. Assessment 4. Elevated troponin. We will trend these out. I suspect that this is related to her renal failure. Assessment 5. DVT prophylaxis Plan will give Lovenox Assessment 6. Hypertension Plan: Will continue outpatient medications but will hold telmisartan due to acute on chronic renal failure Anticipate possible discharge tomorrow or and hope to discharge home
[2017-10-01] MEDS: ENOXAPARIN 30 MG/0.3 ML SYRINGE SUBCUT (19:55)
[2017-10-01] MEDS: AMITRIPTYLINE 25 MG TABLET 75 MG PO (20:21)
[2017-10-01] MEDS: SIMVASTATIN 40 MG TABLET PO (20:22)
[2017-10-02 02:10] VITALS: O2SAT 93
--- NOTE | 2017-10-02 02:13 | PC.NURSE ---
Fingerstick Checked by patients own supplies and reading as 222. Discussed results with patient, No additional insulin given.
[2017-10-02 04:50] VITALS: BP 132/52; PULSE 94; RESP 18; TEMP 36.7; O2SAT 94
[2017-10-02] MEDS: ALBUTEROL/IPRATROPIUM 3 ML AMPUL INH ×2 (06:00→11:10)
[2017-10-02] MEDS: FLUTICASONE/SALMETEROL 250/50 14 PUFF DISKUS INH (06:01)
[2017-10-02 06:05] VITALS: O2SAT 95
[2017-10-02 06:15] LABS: Add Manual Diff / Slide Review NO; Hematocrit 36.7 % (36-46); Hemoglobin 11.9 g/dL (12.0-16.0); Lymphocytes Percent Auto 3.7 % (25-40); Mean Corpuscular HGB Conc 32.6 % (30-36); Mean Corpuscular Hemoglobin 31.4 PG (26-34); Mean Corpuscular Volume 96.6 fL (80-100); Monocytes Percent Auto 1.3 % (3-14); Neutrophils Absolute Auto 9700 /uL (3000-5900); Platelet Count 173 X10^3/uL (150-400); Red Cell Distribution Width 17.2 % (11.6-14.8); White Blood Cell Count 10.2 X10^3/uL (4.5-11.0)
[2017-10-02 06:21] LABS: Alanine Aminotransferase 33 IU/L (9-52); Albumin 3.3 g/dL (3.5-5.0); Albumin Globulin Ratio 0.9 (1.0-2.8); Alkaline Phosphatase 128 U/L (38-126); Aspartate Aminotransferase 36 IU/L (14-36); BUN Creatinine Ratio 24.4 (6-22); Bilirubin Total 0.2 mg/dL (0.2-1.3); Blood Urea Nitrogen 78 mg/dL (7-17); Carbon Dioxide 22 mmol/L (22-32); Chloride 103 mmol/L (98-107); Creatine Kinase 257 U/L (30-135); Estimated Glomerular Filt Rate 14.3 mL/min (>60); Globulin 3.5 g/dL (1.7-4.1); Glucose 237 mg/dL (80-110); HEMOLYSIS < 15 (0-50); Potassium 4.3 mmol/L (3.4-5.1); Sodium 137 mmol/L (137-145); Total Protein 6.8 g/dL (6.3-8.2)
[2017-10-02 06:34] LABS: Troponin I 0.069 ng/mL (0.01-0.034)
[2017-10-02 06:42] LABS: Creatine Kinase MB 7.68 ng/mL (<2.37)
[2017-10-02 07:30] VITALS: PULSE 81; RESP 16; TEMP 36.9; O2SAT 93
[2017-10-02] MEDS: FLUTICASONE 120 SPRAY/16 GM SPRAY.SUSP NASAL (08:56)
[2017-10-02] MEDS: PANTOPRAZOLE 40 MG VIAL IV (08:57)
[2017-10-02] MEDS: GABAPENTIN 300 MG CAPSULE PO (08:57)
[2017-10-02] MEDS: methylPREDNISolone 125 MG/2 ML VIAL 60 MG IV (08:57)
[2017-10-02] MEDS: CEFTRIAXONE 1 GM/50 ML FROZ.PIGGY IV (08:57)
[2017-10-02] MEDS: LORATADINE 10 MG TABLET PO (08:58)
[2017-10-02] MEDS: CALCIUM CARB/VIT D3 500/200 TABLET 1 EACH PO (08:58)
[2017-10-02] MEDS: dilTIAZem CD 120 MG CAP 240 MG PO (08:58)
[2017-10-02] MEDS: VIT C/E/ZN/COPPR/LUTEIN/ZEAXAN CAPSULE 1 CAP PO (08:58)
[2017-10-02] MEDS: ALLOPURINOL 100 MG TABLET PO (08:58)
[2017-10-02 09:00] VITALS: O2SAT 98
--- NOTE | 2017-10-02 10:40 | CM.DANOTE ---
DCP: Case received, EMR reviewed and met with patient. Introduced self and role, was with patient as well. DCP template completed with info currently available. Pt is a 71 year old female who admitted yesterday early am to care of hospitalist team. PCP: Dr. Boyd Payer: confirmed: Medicare/obopay Pt carries diagnosis of COPD, and was admitted for acute resp failure with hypoxia. Patient lives at home with , who is very supportive. P: Has oxygen at home, respitory therapy will assist in helping patient get a nebulizer for home use. Patient plans to return home with care of . Will follow up for discharge orders. Sharlene Briceño RN/Copper Plate Lithographer
[2017-10-02 11:11] VITALS: PULSE 84; RESP 14; O2SAT 96
--- NOTE | 2017-10-02 12:15 | PC.NURSE ---
discharge: Patient sat's 90% on ra w/ trial of ra. desat to 86% and sob w/ activity but climbs back up to 93-95% on ra after approx 5 min of rest. spouse states this is her baseline. encouraged patient to go home to printing and stamping supervisor their o2 tank from home prior to appt in [place]. They live in [place] and decline, noting that patient will be at rest for the trip and they will use a wc when they arrive at their appt. Called [facility] to see about issuing a tank from here. Would be possible but prolonged process. Patient and spouse again decline. They confirm they do have o2 tank at home, and that they use a home care agency in [place]. Encouraged setting up service with a local agency for oxygen. They will discuss this with Dr. Boyd at their follow up appt on Saturday. patient left by wc w/ emotional support teacher escort to vehicle.
--- NOTE | 2017-10-02 18:32 | PM.DS.1 ---
History of Present Illness Chief complaint: TROUBLE BREATHING Narrative: This pleasant 71-year-old female presented to emergency department on the date of admission with complaints of progressively worsening shortness of breath. She has a history of reactive airway disease and tobacco abuse as well as diabetes which is controlled with an insulin pump and she had noticed over the last month that she has been having cough with production and phlegm that had progressively worsened over the last several days. She was having coughing attacks and having phlegm that was stuck in her airway and progressive worsening dyspnea. She received for nebulizers treatments in the ER before she was improved and her O2 sats on room air were in the upper 80s and so she was given Solu-Medrol and it was felt that there was possible component of congestive heart failure based on the x-ray and she was given IV Lasix 40 mg. She was also noted to have acute on chronic renal failure and so she was admitted for the further treatment. She states she is feeling much better today and is quite surprised that I am not going to send her home. She is eating and having a normal appetite and feels her breathing is better. Her O2 sats are 95% on 2 L nasal cannula oxygen. Past medical history: One. Type 2 diabetes she is now insulin dependent and is seeing an grinder operator automatic at [facility] and is on an insulin pump. She has had diabetes for greater than 20 years. 2. Reactive airways disease 3. COPD. Despite having fairly poor lung function she has avoided hospitalizations for acute exacerbations and has been fairly stable on her outpatient regimen of Spiriva, Advair and albuterol. She does not use nebulizers at home. She uses oxygen at night on an as needed basis Four. Hypertension 5. Hyperlipidemia 6. Breast cancer status post lumpectomy, radiation 7. Chronic kidney disease, stage III. Secondary to diabetes. Managed by steam table associate 8. Allergic rhinitis Past surgical history: 1. Right breast lumpectomy 2. Hysterectomy Family history: Diabetes on her mom's side Hypertension in both parents Children are healthy Health through the behavior: She does not exercise She previously smoked but quit several years ago She does not use alcohol or illicit drugs Social history: She is originally from the [facility]. Romansh is her 2nd language. She has 2 children and has grandchildren who live nearby locally. She is and lives with her in [place] but they do live in [place] in the winter. Review of systems: She denies any headaches or visual changes No chest pain, lightheadedness or dizziness No diarrhea or constipation. No blood in her stool. No reflux. She does have dyspnea on exertion that has worsened She denies depression or anxiety Denies unintentional weight loss or weight gain Blood sugars have been well controlled She has had routine follow-up on her breast cancer Discharge Providers Date of admission: 10/01/17 01:55 Primary care physician: Aleyda Boyd MD Consults: 09/30/17 22:40 Consult to Respiratory Therapy Evaluate & Treat Comment: Physician Instructions: Evaluate and treat 10/01/17 08:23 Consult to Respiratory Therapy Evaluate & Treat Comment: Physician Instructions: Evaluate and treat Discharge provider: Aleyda Boyd MD Summary Discharge Diagnosis: Acute hypoxemia with COPD exacerbation Acute on chronic renal failure Type 2 diabetes with insulin pump with worsening blood sugars due to steroids Peripheral neuropathy stable Hyperkalemia improved Hypertension Hyperlipidemia Allergic rhinitis Hospital Course: Patient was admitted to the hospital for hypoxemia secondary to COPD exacerbation and suspected possible pneumonia. She was given 3 doses of IV ceftriaxone and IV Solu-Medrol and was markedly better from a respiratory standpoint. There was suspicion on her initial chest x-ray for possible congestive heart failure and she was given 40 mg of IV Lasix. Her case was discussed with on-call Nephrology and they stated that since she was making good urine that we could manage her and treat with fluids and Lasix etc. She received IV fluids yesterday for about 15 hr. She did not receive any overnight and she did not receive any more Lasix and she continues to be urinating. She is still requiring 1 L of oxygen to keep her sats above 90%. Her lung exam is much improved. Her kidney function did not improve significantly still with a creatinine of 3.2. She had hyperkalemia when she 1st presented to the ER and received Lasix and did not have further problems. She had a normal sinus rhythm EKG with nonspecific changes. Her echo showed normal ejection fraction and her B and P was in the 200s and now 400 today. She had intermediate positive troponins and elevated creatinine kinase but this was thought to be due to relative dehydration and acute renal failure. She had no symptomatology of acute coronary syndrome. This was discussed with Dr. Murphy. I discussed her case with Dr. maranda castañeda who is her steam table associate and she agreed that as long as she is making urine we could follow her closely. Her telmisartan was held during this hospitalization but the remainder of her outpatient medications were continued. Patient was discharged home in improved condition but not at baseline. Greater than 30 min was spent in discharge with patient and on the floor Patient was continued on her same outpatient medications but discharged home with albuterol nebulizer, instructions to continue on home oxygen until follow-up. They wore instructed how to monitor her oximetry level. She will have a BMP on Saturday and will be seen by me on Saturday and Dr. Serna on Saturday. She has an appointment with Dr. Dorys san today. Her discharge medications are the same as her home medications but the telmisartan is to be held until further notification. She is also discharged home on Ceftin 500 mg twice daily for 10 days and on a prednisone taper which is 40 mg daily for 2 days then 20 mg daily for 4 days then 10 mg daily for 4 days and then 10 mg every other day for 4 days and then discontinued. Status at Discharge Cognitive/behavioral status at discharge: Normal Functional status at discharge: independent ambulation Overall status at discharge: patient is not back to baseline Time Spent with Patient Greater than 30 minutes Exam Vital Signs (past 8 hours): - 10/02/17 11:11 Pulse Rate 84 Respiratory Rate 14 Pulse Oximetry 96 Oxygen Delivery Method Nasal Cannula Oxygen Flow Rate 1 Narrative Exam Narrative: Patient is alert and oriented x3. She is feeling much better. She is wanting to go home. She states that her breathing is much better. She denies any chest pain. She denies any abdominal pain. She does state that she has lower extremity edema but this is improved. She has a good appetite. Her blood sugars have been high in the 3 100s but she has done well with sliding scale insulin Twelve point review of systems is negative other than above O2 sat on room air is 88-89%. O2 sats on 1 L of oxygen is 92-93%. Patient has had 400 cc of urine out in the last 8 hr She has very mild crackles in the right base but really no wheezes and no rhonchi and improved air exchange from yesterday Cor: Sinus tachycardia with distant S1 and S2 and no audible murmurs Abdomen: Positive bowel sounds, soft, nontender, nondistended Extremities: Trace to 1+ pitting edema pretibial Skin: No rashes Objective Labs Result Diagrams: 10/02/17 05:50 10/02/17 05:50 Labs: Laboratory Results - last 24 hr 10/02/17 10/02/17 10/02/17 05:50 05:50 05:50 WBC 10.2 RBC 3.80 L Hgb 11.9 L Hct 36.7 MCV 96.6 MCH 31.4 MCHC 32.6 RDW 17.2 H Plt Count 173 Neut % (Auto) 95.0 H Lymph % (Auto) 3.7 L [place] % (Auto) 1.3 L Eos % (Auto) 0.0 L Baso % (Auto) 0.0 Neut # (Auto) 9700 H Sodium 137 Potassium 4.3 Chloride 103 Carbon Dioxide 22 BUN 78 H Creatinine 3.20 H Estimated GFR 14.3 L BUN/Creatinine Ratio 24.4 H Glucose 237 H D Calcium 9.0 Total Bilirubin 0.2 AST 36 ALT 33 Alkaline Phosphatase 128 H Total Creatine Kinase 257 H CK-MB (CK-2) 7.68 H CK-MB (CK-2) Rel Index 3.0 Troponin I 0.069 H B-Natriuretic Peptide Total Protein 6.8 Albumin 3.3 L Globulin 3.5 Albumin/Globulin Ratio 0.9 L 10/02/17 05:50 WBC RBC Hgb Hct MCV MCH MCHC RDW Plt Count Neut % (Auto) Lymph % (Auto) [place] % (Auto) Eos % (Auto) Baso % (Auto) Neut # (Auto) Sodium Potassium Chloride Carbon Dioxide BUN Creatinine Estimated GFR BUN/Creatinine Ratio Glucose Calcium Total Bilirubin AST ALT Alkaline Phosphatase Total Creatine Kinase CK-MB (CK-2) CK-MB (CK-2) Rel Index Troponin I B-Natriuretic Peptide 432.0 H Total Protein Albumin Globulin Albumin/Globulin Ratio Discharge Plan Discharge Plan Patient Disposition: Home, Self-Care Provider Discharge Instructions Diet: Carb-consistent/Diabetic, Low-sodium, Low-cholesterol and Low-protein/Renal Oxygen: use home o2 to keep sats 90 or greater Discharge Data Primary Care Provider: Aleyda Boyd Attending Provider: Aleyda Boyd Admit Date/Time: 10/01/17 01:55 Discharges patient from system. Discharge Date/Time: 10/02/17 12:15
== END 2017-10-02 12:15 | disposition home or self-care (01) | DRG 189 ==
LOC: ED 23:21 → AC 10-01 01:56
PROVIDERS: Admitting Provider Family Medicine; Emergency Provider Emergency Medicine; Family Provider Family Medicine; PCP Family Medicine; Visit Provider Family Medicine
DX: J96.01 Acute respiratory failure with hypoxia (principal); J44.1 Chronic obstructive pulmonary disease with (acute) exacerbation; N17.9 Acute kidney failure, unspecified; Z99.81 Dependence on supplemental oxygen; E11.22 Type 2 diabetes mellitus with diabetic chronic kidney disease; N18.3 Chronic kidney disease, stage 3 (moderate); Z79.4 Long term (current) use of insulin; E78.5 Hyperlipidemia, unspecified; Z87.891 Personal history of nicotine dependence; Z96.41 Presence of insulin pump (external) (internal); I12.9 Hypertensive chronic kidney disease with stage 1 through stage 4 chronic kidney disease, or unspecified chronic kidney disease; T38.0X5A Adverse effect of glucocorticoids and synthetic analogues, initial encounter; E11.40 Type 2 diabetes mellitus with diabetic neuropathy, unspecified; E87.5 Hyperkalemia
CPT/HCPCS: 36415; 36591; 36592; 36600; 71045; 80048; 80053; 81003; 81015; 82550; 82553; 82805; 82962; 83605; 83735; 83880; 84145; 84484; 85025; 87040; 93005; 93306; 94150; 94640; 94760; 94762; 99284; C9113; J1650; J1940; J2930; J7050; J7613